=== PATIENT | male | born 1990 | race Caucasian/White ===

== ENCOUNTER 2023-10-30 18:41 | Emergency (ER) | payer OTHER ==
[2023-10-30 18:46] VITALS: TEMP 98
--- NOTE | 2023-10-30 19:11 | ED ---
Back Pain HPI - General Chief Complaint: Back Pain/Injury Stated Complaint: [facility]-Back injury Time Seen by Provider: 10/30/23 19:09 Source: patient, RN notes reviewed Limitations: no limitations - History of Present Illness Initial Comments: Patient is a 33-year-old male presented to ER with a chief complaint of lumbar back pain. 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 Since he has been experiencing a shooting pain to his left spine worse with movement. He states on car ride to the emergency department his legs were tingly. Denies any current paresthesias. Denies any bowel or bladder incontinence, saddle paresthesias, weakness. Patient took a Tylenol at noon today for symptom control. No other injuries or complaints. No history of back issues. - Related Data Previous Rx's Medication Instructions Recorded Cyclobenzaprine [Flexeril] 10 mg PO TID PRN #15 tab 10/30/23 predniSONE 50 mg PO DAILY #5 tab 10/30/23 Allergies Allergy/AdvReac Type Severity Reaction Status Date / Time No Known Allergies Allergy Verified 10/30/23 18:46 Review of Systems ROS Statement: Those systems with pertinent positive or pertinent negative responses have been documented in the HPI. ROS Other: All systems not noted in ROS Statement are negative. Past Medical History Past Medical History: No Reported History Additional Past Surgical History / Comment(s): left shoulder, growth removed from left kidney . Past Psychological History: No Psychological Hx Reported Smoking Status: Current every day smoker Past Alcohol Use History: Occasional Past Drug Use History: None Reported General Exam Limitations: no limitations General appearance: alert, in no apparent distress Neck exam: Present: normal inspection. Absent: tenderness, meningismus, lymphadenopathy Respiratory exam: Present: normal lung sounds bilaterally. Absent: respiratory distress, wheezes, rales, rhonchi, stridor Cardiovascular Exam: Present: regular rate, normal rhythm, normal heart sounds. Absent: systolic murmur, diastolic murmur, rubs, gallop, clicks Extremities exam: Present: normal inspection, full ROM, normal capillary refill, other (2+ bilateral dorsalis and posterior tibial pulses.). Absent: tenderness, pedal edema, joint swelling, calf tenderness Back exam: Present: normal inspection, tenderness (Right lumbar paraspinal muscles. No overlying skin changes. Negative straight leg raise bilaterally. Bilateral dorsiflexion strength 5+) Neurological exam: Present: alert, oriented X3, CN II-XII intact Skin exam: Present: warm, dry, intact, normal color. Absent: rash Course Vital Signs 10/30/23 10/30/23 18:43 20:39 Temperature 98 F Pulse Rate 65 64 Respiratory 18 16 Rate Blood Pressure 128/80 121/77 O2 Sat by Pulse 98 100 Oximetry Medical Decision Making - Medical Decision Making Was pt. sent in by a medical professional or institution (, PA, INTERCEPTOR OPERATOR, urgent care, hospital, or alf...) When possible be specific @ -No Did you speak to anyone other than the patient for history (EMS, parent, family, police, friend...)? What history was obtained from this source @ -No Did you review nursing and triage notes (agree or disagree)? Why? @ -I reviewed and agree with nursing and triage notes Were old charts reviewed (outside hosp., previous admission, EMS record, old EKG, old radiological studies, urgent care reports/EKG's, alf records)? Report findings @ -No old charts were reviewed Differential Diagnosis (chest pain, altered mental status, abdominal pain women, abdominal pain men, vaginal bleeding, weakness, fever, dyspnea, syncope, headache, dizziness, GI bleed, back pain, seizure, CVA, palpatations, mental health, musculoskeletal)? @ -Differential Back Pain:Strain, zoster, cauda equina syndrome, epidural abscess, vertebral osteomyelitis, discitis, fracture, subluxation, disc herniation, DJD, spinal stenosis, dissection, AAA, pancreatitis, peptic ulcer disease, pyelonephritis, kidney stone, this is not meant to be an all-inclusive list. EKG interpreted by me (3pts min.). @ -None X-rays interpreted by me (1pt min.). @ -Lumbar spine x-rays interpreted are negative for acute fractures or dislocations. CT interpreted by me (1pt min.). @ -None done U/S interpreted by me (1pt. min.). @ -None done What testing was considered but not performed or refused? (CT, X-rays, U/S, labs)? Why? @ -None What meds were considered but not given or refused? Why? @ -None Did you discuss the management of the patient with other professionals (professionals i.e. , PA, INTERCEPTOR OPERATOR, lab, RT, psych nurse, foster care social worker, presentation manager, teacher, tactical/mobile watch officer, family preservation caseworker)? Give summary @ -No Was smoking cessation discussed for >3mins.? @ -No Was critical care preformed (if so, how long)? @ -No Were there social determinants of health that impacted care today? How? (Homelessness, low income, unemployed, alcoholism, drug addiction, transportation, low edu. Level, literacy, decrease access to med. care, usp, rehab)? @ -No Was there de-escalation of care discussed even if they declined (Discuss DNR or withdrawal of care, Hospice)? DNR status @ -No What co-morbidities impacted this encounter? (DM, HTN, Smoking, COPD, CAD, Cancer, CVA, ARF, Chemo, Hep., AIDS, mental health diagnosis, sleep apnea, morbid obesity)? @ -None Was patient admitted / discharged? Hospital course, mention meds given and route, prescriptions, significant lab abnormalities, going to OR and other pertinent info. @ -Discharge. 33-year-old male presented to ER with a chief complaint of back pain. History and physical exam completed. Vitals within normal limits. Patient no signs of acute distress and nontoxic-appearing. No red flag back pain symptoms indicative cauda equina syndrome. X-ray obtained negative for acute process. Patient received p.o. Flexeril and lidocaine patch in the ER for symptom control. Upon reevaluation, patient resting comfortably in exam room no signs acute distress. Patient eager for discharge. Flexeril and prednisone prescribed. Strict return parameters discussed. Patient discharged stable condition with follow-up to PCP. Patient verbally expressed understanding agree with care plan. Case discussed with attending, Dr. Robins. Undiagnosed new problem with uncertain prognosis? @ -No Drug Therapy requiring intensive monitoring for toxicity (Heparin, Nitro, Insulin, Cardizem)? @ -No Were any procedures done? @ -No Diagnosis/symptom? @ -Muscle strain/back pain Acute, or Chronic, or Acute on Chronic? @ -Acute Uncomplicated (without systemic symptoms) or Complicated (systemic symptoms)? @ -Uncomplicated Side effects of treatment? @ -No Exacerbation, Progression, or Severe Exacerbation? @ -No Poses a threat to life or bodily function? How? (Chest pain, [place], [place], pneumonia, PE, COPD, DKA, ARF, appy, cholecystitis, CVA, Diverticulitis, Homicidal, Suicidal, threat to staff... and all critical care pts) @ -No - Radiology Data Radiology results: report reviewed, image reviewed Disposition Clinical Impression: Muscle strain, Back pain Disposition: HOME SELF-CARE Condition: Stable Instructions (If sedation given, give patient instructions): Acute Low Back Pain (ED) Additional Instructions: Take yhcc-lri-powhket ibuprofen and Tylenol for symptom control. Please be aware Flexeril can make you drowsy and/or sleepy do not drive or operate heavy machinery while on medication. Follow-up with PCP. Return to the ER for any new or worsening concerns. Prescriptions: Cyclobenzaprine [Flexeril] 10 mg PO TID PRN #15 tab PRN Reason: Muscle Spasm predniSONE 50 mg PO DAILY #5 tab Is patient prescribed a controlled substance at d/c from ED?: No Referrals: Radha Bertrand MD [Primary Care Provider] - 1-2 days Time of Disposition: 20:24
[2023-10-30] MEDS: CYCLOBENZAPRINE 10 MG TAB PO STA (19:19)
[2023-10-30] MEDS: LIDOCAINE 4% PATCH TOPICAL ONE (19:19)
--- NOTE | 2023-10-30 20:03 | XR ---
EXAMINATION TYPE: XR lumbar spine 2 or 3V DATE OF EXAM: 10/30/2023 7:34 PM CLINICAL INDICATION: Male, 33 years old with history of pain after lifting 350lbs; H COMPARISON: None TECHNIQUE: XR lumbar spine 2 or 3V - Frontal, lateral and coned in L5-S1 lateral views of the spine. FINDINGS: No evidence of any acute osseous pathology. No evidence of loss of vertebral body height i s seen. There is normal alignment of the lumbar vertebral bodies. Scattered disc space narrowing. Mul tilevel marginal osteophyte formation throughout the visualized spine. There is facet joint arthropat hy throughout the spine. Scattered at least mild neural foraminal stenosis. IMPRESSION: 1. No acute fracture. 2. Mild multilevel disc degeneration. [facility], , 10/30/2023 8:01 PM
[2023-10-30 20:40] VITALS: BP 121/77; PULSE 64; RESP 16
== END 2023-10-30 20:39 | disposition home or self-care (01) ==
LOC: EC 18:41
CPT/HCPCS: 72100; 99283

== ENCOUNTER → 2023-12-21 | Outpatient (CLI) | payer OTHER ==
--- NOTE | 2023-12-24 00:45 | MR ---
INDICATION: Patient age:Male; 33 years old; Reason for study: M54.16 RADICULOPATHY, LUMBAR REGION; H. COMPARISONS: Lumbar spine radiograph 10/30/2023. TECHNIQUE: Multi planar, multi sequence imaging was performed utilizing: T1-weighted, T2-weighted, a nd turbo inversion recovery imaging of the lumbar spine. The patient was not given contrast. FINDINGS: The lumbar vertebral bodies do have preserved heights. No spondylolisthesis. Straightening of the normal lumbar lordosis. The conus medullaris and the distal spinal cord do appear unremarkabl e with regards to their signal intensity and morphology. Incidental sacral Tarlov cysts. L1-L2: No significant disc pathology is identified. The spinal canal and neural foramen are patent. L2-L3: No significant disc pathology is identified. The spinal canal and neural foramen are patent. L3-L4: No significant disc pathology is identified. The spinal canal and neural foramen are patent. L4-L5: Mild broad-based disc bulge. No significant effacement of the anterior thecal sac. Minimal hank ateral neural foraminal narrowing. L5-S1: Disc desiccation demonstrated. Annular fissure. Central disc protrusion without significant ef facement of the anterior thecal sac. Neural canals are mildly narrowed bilaterally. Other significant findings: None. IMPRESSION: L5-S1 central disc herniation with annular fissure. No significant central canal stenosis. Mild bilat eral neural foraminal stenosis at this level. Minimal degenerative disc disease at L4-L5. [facility], , 12/24/2023 12:43 AM
== END | disposition home or self-care (01) ==
LOC: RADMRIMAIN 16:51
PROVIDERS: ATTEND Internal Medicine
DX: M48.061 Spinal stenosis, lumbar region without neurogenic claudication (principal); M51.17 Intervertebral disc disorders with radiculopathy, lumbosacral region
CPT/HCPCS: 72148

== ENCOUNTER → 2024-06-24 | Outpatient (CLI) | payer OTHER ==
--- NOTE | 2024-06-24 22:26 | MR ---
EXAMINATION TYPE: MR cspine/tspine wo con DATE OF EXAM: 06/24/2024 7:05 PM COMPARISON: None. CLINICAL INDICATION: Male, 34 years old with history of R53.1 WEAKNESS M54.14 T RADICULOPATHY M54.12 C RAD; PHH, Neck pain, mid and low back pain, bilateral leg pain/numbness and weakness since TECHNIQUE: Multi planar, multi sequence imaging was performed utilizing: T1-weighted, T2-weighted, a nd turbo inversion recovery imaging of the cervical and thoracic spine. IV Contrast: mL (None, if empty) FINDINGS: CERVICAL: Alignment: The cervical vertebral bodies have preserved heights. Alignment is within normal limits gi jonathan patient positioning. Bones: Bone signal is within normal limits. No abnormal bone marrow edema on inversion recovery seque nces. Cord: Prominent central canal measuring less than 1 mm thought to be present most pronounced on sagit fouzia T2 weighted imaging. The spinal cord is unremarkable with regards to their signal intensity and m orphology. Discs: Intervertebral disc signal is maintained. C2-C3: No significant disc pathology. The spinal canal is patent. No neural foraminal stenosis. C3-C4: No significant disc pathology. The spinal canal is patent. No neural foraminal stenosis. C4-C5: No significant disc pathology. The spinal canal is patent. No neural foraminal stenosis. C5-C6: No significant disc pathology. The spinal canal is patent. No neural foraminal stenosis. C6-C7: No significant disc pathology. The spinal canal is patent. No neural foraminal stenosis. C7-T1: No significant disc pathology. The spinal canal is patent. No neural foraminal stenosis. THORACIC: No evidence significant spinal canal or neural foraminal stenosis. Spinal cord is within no rmal limits Other: None. IMPRESSION: 1. No definitive evidence of disc herniation or significant spinal canal stenosis. 2. Slightly prominent central canal of the spinal cord measuring 1 mm extending throughout the visual ized spine. Finding could be normal variant. Versus less likely Syringomyelia. [facility], , 06/24/2024 10:24 PM
== END | disposition home or self-care (01) ==
LOC: RADMRIMAIN 18:04
PROVIDERS: ATTEND Specialist
DX: M54.14 Radiculopathy, thoracic region (principal); R53.1 Weakness; M54.12 Radiculopathy, cervical region
CPT/HCPCS: 72141; 72146